=== PATIENT | male | born 1985 | race Caucasian/White ===

== ENCOUNTER 2018-08-04 08:54 | Emergency (ER) | payer SELFPAY ==
[~2018-08-04] VITALS: Ht 177.8 cm; Wt 83.9 kg
[2018-08-04 08:54] VITALS: BP 121/74
== END 2018-08-04 10:32 | disposition home or self-care (01) ==
LOC: ER 08:56
DX: S83.8X2A Sprain of other specified parts of left knee, initial encounter (principal); W11.XXXA Fall on and from ladder, initial encounter; Y93.89 Activity, other specified; Y92.89 Other specified places as the place of occurrence of the external cause; Y99.8 Other external cause status
CPT/HCPCS: 29505; 73564; 99284; A4606; Z7610